=== PATIENT | female | born 1995 | race Caucasian/White ===

== ENCOUNTER 2021-09-18 08:16 | Emergency (ER) | payer OTHER ==
--- OUTSIDE RECORDS SUMMARY | 2021-09-18 08:20 | XMS REPORT | Continuity of Care Document ---
:1995 Author Organization [facility] t Address [address] [place] [address] [place] [id number] Care Team Providers Name Role Phone MAICOL Attending Clinician Unavailable Payers Payer Name Policy Type Policy Number Effective Date Expiration Date S ource [employer] [id number] 2018 [employer] 00:00:00 Problems This patient has no known problems. Allergies, Adverse Reactions, Alerts Allergy Allergy Status Severity Reaction(s) Onset Inactive Treating Comm ents Source Name Type Date Date Clinician NO KNOWN Drug Active Roger linton [facility] Medications This patient has no known medications. Procedures This patient has no known procedures. Encounters Start End Encounter Admission Attending Care Care Encounter Source Date/Time Date/Time Type Type Clinicians Facility Department ID 2021-03-27 2021-03-27 Outpatient Yassine MILIAN [facility] [id number] 10:00:00 10:00:[address] [facility] Results This patient has no known results.
[2021-09-18] MEDS ORDERED: NA CHLORIDE 0.9% 1,000 ML ONE ×2 (08:40→10:46)
[2021-09-18 09:04] LABS: Absolute Lymphocytes (CBC) 0.5 K/uL (0.7-4.9); Basophils % 0.3 % (0-1.3); Hematocrit 44.1 % (36.0-45.0); Lymphocytes % 7.4 % (15.3-44.8); MPV 7.3 fL (7.6-11.3); RBC Red Blood Cell Count 5.11 M/uL (3.86-4.86)
[2021-09-18 09:17] LABS: BUN Blood Urea Nitrogen 14 mg/dL (7-18); Bicarbonate 30 mmol/L (21-32); Glucose Level 95 mg/dL (74-106); Potassium 3.8 mmol/L (3.5-5.1); Sodium Level 142 mmol/L (136-145)
[2021-09-18 09:36] LABS: Blood Morphology Comment NOT SEEN (NOT SEEN); Platelet Estimate ADEQ
[2021-09-18 09:46] LABS: Urine Blood Trace-intact (Negative); Urine Glucose Negative (Negative); Urine Protein Trace (Negative); Urine pH 7.5 (5.0-7.0)
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
[2021-09-18] MEDS ORDERED: ACETAMINOPHEN 500 MG TAB ONE (10:46)
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
[2021-09-18 13:04] VITALS: TEMP 98.8
[2021-09-18 13:10] VITALS: O2SAT 98
[2021-09-18 13:17] VITALS: BP 107/80
== END 2021-09-18 12:54 | disposition home or self-care (01) ==
LOC: ER 08:16
DX: S12.601A Unspecified nondisplaced fracture of seventh cervical vertebra, initial encounter for closed fracture (principal); R07.9 Chest pain, unspecified; V43.52XA Car driver injured in collision with other type car in traffic accident, initial encounter
CPT/HCPCS: 96361; 85025; 80048; 36415; 81025; 81003; 70450; 72125; 71260; 74177; 72141; 72146; 96360; 99284; Q9967; J7030 ×2